=== PATIENT | female | born 1940 | race Caucasian/White ===

== ENCOUNTER → 2017-01-08 | Outpatient (CLI) | payer MEDICARE, BC ==
[~2017-01-08] MED LIST: ASPIRIN 32325 MG/TAB PO; CENTRUM SILVER1 TA1 PO; CHOLESTYRAMINE1 POW; CITRACAL PLUS1 TAB PO; CLONAZEPAM1 MG PO; FLUOXETINE40 MG PO; ISOSORBIDE MONO30 M1 PO; METOPROLOL SUC100 M1 PO; NIACIN500 M3 PO; NORVASC 5MG5 MG/TAB PO; OMEGA-31000 MG PO; OMEPRAZOLE20 MG PO; ULTRAM 50MG TAB50 MG PO
== END ==
LOC: MHCPAIN 10:28
DX: G89.29 Other chronic pain (principal); M47.817 Spondylosis without myelopathy or radiculopathy, lumbosacral region; M54.16 Radiculopathy, lumbar region; M53.3 Sacrococcygeal disorders, not elsewhere classified; M96.1 Postlaminectomy syndrome, not elsewhere classified
CPT/HCPCS: G0463

== ENCOUNTER → 2017-01-25 | Outpatient (CLI) | payer MEDICARE, BC | LOC: MHCPAIN 10:39 | DX: M47.817 Spondylosis without myelopathy or radiculopathy, lumbosacral region (principal) | CPT/HCPCS: J1100; Q9967 ==

== ENCOUNTER → 2017-02-28 | Outpatient (CLI) | payer MEDICARE, BC | LOC: MHCPAIN 10:13 | DX: G89.29 Other chronic pain (principal); M47.27 Other spondylosis with radiculopathy, lumbosacral region; M96.1 Postlaminectomy syndrome, not elsewhere classified; Z79.02 Long term (current) use of antithrombotics/antiplatelets | CPT/HCPCS: G0463 ==

== ENCOUNTER → 2017-05-02 | Outpatient (CLI) | payer MEDICARE, BC | LOC: MHCPAIN 11:36 | DX: G89.29 Other chronic pain (principal); M47.27 Other spondylosis with radiculopathy, lumbosacral region; M53.3 Sacrococcygeal disorders, not elsewhere classified; M96.1 Postlaminectomy syndrome, not elsewhere classified; Z79.02 Long term (current) use of antithrombotics/antiplatelets; Z79.82 Long term (current) use of aspirin | CPT/HCPCS: G0463 ==

== ENCOUNTER → 2017-08-22 | Outpatient (CLI) | payer MEDICARE, BC | LOC: MHCPAIN 09:46 | DX: G89.29 Other chronic pain (principal); M47.27 Other spondylosis with radiculopathy, lumbosacral region; M53.3 Sacrococcygeal disorders, not elsewhere classified; M96.1 Postlaminectomy syndrome, not elsewhere classified | CPT/HCPCS: G0463 ==

== ENCOUNTER → 2017-09-20 | Outpatient (CLI) | payer MEDICARE, BC | LOC: MHCPAIN 09:33 | DX: M47.817 Spondylosis without myelopathy or radiculopathy, lumbosacral region (principal); M96.1 Postlaminectomy syndrome, not elsewhere classified; M53.3 Sacrococcygeal disorders, not elsewhere classified | CPT/HCPCS: G0260; J1040; Q9967 ==

== ENCOUNTER → 2017-12-21 | Outpatient (CLI) | payer MEDICARE, BC | LOC: MHCPAIN 09:55 | DX: G89.29 Other chronic pain (principal); M47.817 Spondylosis without myelopathy or radiculopathy, lumbosacral region; M54.16 Radiculopathy, lumbar region; M53.3 Sacrococcygeal disorders, not elsewhere classified; M96.1 Postlaminectomy syndrome, not elsewhere classified | CPT/HCPCS: G0463 ==

== ENCOUNTER → 2018-02-12 | Outpatient (CLI) | payer MEDICARE, BC | LOC: MHCPAIN 10:22 | DX: G89.29 Other chronic pain (principal); M47.817 Spondylosis without myelopathy or radiculopathy, lumbosacral region; M54.16 Radiculopathy, lumbar region; M53.3 Sacrococcygeal disorders, not elsewhere classified; M96.1 Postlaminectomy syndrome, not elsewhere classified | CPT/HCPCS: G0463 ==

== ENCOUNTER → 2018-02-21 | Outpatient (CLI) | payer MEDICARE, BC | LOC: MHCPAIN 09:09 | DX: M47.817 Spondylosis without myelopathy or radiculopathy, lumbosacral region (principal) | CPT/HCPCS: J1100; J3010; Q9967 ==

== ENCOUNTER → 2018-04-24 | Outpatient (CLI) | payer MEDICARE, BC | LOC: MHCPAIN 09:13 | DX: G89.29 Other chronic pain (principal); M47.817 Spondylosis without myelopathy or radiculopathy, lumbosacral region; M54.16 Radiculopathy, lumbar region; M53.3 Sacrococcygeal disorders, not elsewhere classified; M96.1 Postlaminectomy syndrome, not elsewhere classified | CPT/HCPCS: G0463 ==

== ENCOUNTER → 2018-07-24 | Outpatient (CLI) | payer MEDICARE, BC | LOC: MHCPAIN 09:36 | DX: G89.29 Other chronic pain (principal); M47.817 Spondylosis without myelopathy or radiculopathy, lumbosacral region; M54.16 Radiculopathy, lumbar region; M53.3 Sacrococcygeal disorders, not elsewhere classified; M96.1 Postlaminectomy syndrome, not elsewhere classified | CPT/HCPCS: G0463 ==

== ENCOUNTER 2019-11-21 09:31 | Day surgery (SDC) | payer MEDICARE, BC ==
[~2019-11-21] VITALS: Ht 170.2 cm; Wt 102.5 kg
[2019-11-21 10:04] VITALS: BP 119/69; PULSE 61; TEMP 98.4
[2019-11-21] MEDS ORDERED: NEURONTIN600 MG/TAB PO (10:27)
[2019-11-21] MEDS ORDERED: LASIX 40MG TABL40 MG PO (10:27)
[2019-11-21] MEDS ORDERED: PROTONIX 40MG T40 MG PO (10:28)
[2019-11-21] MEDS ORDERED: K-DUR20 MEQ PO (10:28)
[2019-11-21] MEDS ORDERED: PLAVIX 75MG TAB75 MG PO (10:29)
[2019-11-21] MEDS ORDERED: LIPITOR 40MG TA40 MG PO (10:30)
[2019-11-21] MEDS ORDERED: ASPIRIN 81M81 MG/TA2 PO (10:30)
[2019-11-21] MEDS ORDERED: ATIVAN 1MG T1 MG/TAB PO (10:31)
[2019-11-21] MEDS ORDERED: NITRO-DUR0.4 MG/PAT TD (10:32)
[2019-11-21] MEDS ORDERED: ANTIVERT 25MG25 MG PO (10:32)
[2019-11-21] MEDS ORDERED: TYLENOL 500MG500 MG PO ×2 (10:33→10:34)
[2019-11-21] MEDS ORDERED: UNISOM SLEEPGEL50 MG PO (10:34)
[2019-11-21] MEDS ORDERED: FLEXERIL 1010 MG/TAB PO (10:35)
[2019-11-21 11:35] VITALS: BP 108/62; PULSE 57; TEMP 98.1
--- NOTE | 2019-11-21 11:35 | NUR ---
Patient brought back to [facility] via cart. Ambulated to chair with one assist. Placed on monitors, vital signs stable. SpO2 90% while coached increased to 94%. Patient is alert and oriented. Denies pain or nausea. Would like to just rest at this time. Warm blanket provided, call deal within reach. Will continue to monitor.
[2019-11-21 11:50] VITALS: BP 113/64; PULSE 58
--- NOTE | 2019-11-21 11:50 | NUR ---
Patient requesting diet Pepsi at this time. Tolerating without difficulty. Vital signs stable. Will conitnue to monitor.
[2019-11-21 12:05] VITALS: BP 107/67; PULSE 71
--- NOTE | 2019-11-21 12:05 | NUR ---
MD in pt room going over results. Daughters number given to MD per pt request. Patient denies pain or nausea. Would like to go home at this time. IV Removed without difficulty. Discharge instructions reviewed with patient. All questions answered. Pt to get dressed at this time.
--- NOTE | 2019-11-21 12:34 | NUR ---
René brought down to lobby via wheelchair. All belongings in hand. Daughter met at front door. To drive patient home.
== END 2019-11-21 12:34 | disposition home or self-care (01) ==
LOC: SDCO 09:31
DX: D12.0 Benign neoplasm of cecum (principal); D12.5 Benign neoplasm of sigmoid colon; D50.9 Iron deficiency anemia, unspecified; K57.30 Diverticulosis of large intestine without perforation or abscess without bleeding; R19.7 Diarrhea, unspecified; K29.30 Chronic superficial gastritis without bleeding
CPT/HCPCS: J2250; J3010; J7030

== ENCOUNTER 2022-01-13 09:37 | Day surgery (SDC) | payer MEDICARE, BC ==
[~2022-01-13] VITALS: Ht 170.2 cm; Wt 95.5 kg
[~2022-01-13 09:37] MED LIST changes: +ANTIVERT 25MG25 MG PO; +ASPIRIN 81M81 MG/TA2 PO; +ATIVAN 1MG T1 MG/TAB PO; +FLEXERIL 1010 MG/TAB PO; +K-DUR20 MEQ PO; +LASIX 40MG TABL40 MG PO; +LIPITOR 40MG TA40 MG PO; +NEURONTIN600 MG/TAB PO; +NITRO-DUR0.4 MG/PAT TD; +PLAVIX 75MG TAB75 MG PO; +PROTONIX 40MG T40 MG PO; +TYLENOL 500MG500 MG PO; +UNISOM SLEEPGEL50 MG PO
[2022-01-13 12:05] VITALS: BP 127/75; PULSE 61; TEMP 98.1
[2022-01-13] MEDS ORDERED: PROZAC60 MG PO (12:26)
[2022-01-13] MEDS ORDERED: LOPRESSOR100 MG PO (12:27)
[2022-01-13] MEDS ORDERED: IMDUR 60MG60 MG/TAB PO (12:27)
[2022-01-13] MEDS ORDERED: NEURONTIN300 MG/CAP PO (12:28)
[2022-01-13] MEDS ORDERED: NEURONTIN600 MG/TAB PO (12:29)
[2022-01-13] MEDS ORDERED: GLUCOTROL 5M5 MG/TAB PO (12:30)
[2022-01-13] MEDS ORDERED: CARAFATE 1GM1 G PO (12:31)
[2022-01-13] MEDS ORDERED: PEPCID 20MG TAB20 MG PO (12:32)
[2022-01-13 12:50] VITALS: BP 113/67; PULSE 58; TEMP 97.9
[2022-01-13 13:05] VITALS: BP 111/57; PULSE 54
[2022-01-13 13:20] VITALS: BP 120/66; PULSE 54
--- NOTE | 2022-01-13 13:40 | NUR ---
PT dismissed from endo via wheelchair by a tech. PT has DC packet and educational material, and personal belongings in hand, and was transferred into the care of her daughter, who is present to drive.
--- NOTE | 2022-01-13 13:45 | NUR ---
1250 - PT arrives and was settled by an RN. Written report obtained. Call deal is within reach. 1305 - VSS. PT oriented to room and call deal, within reach. PT provided diet coke and a warm muffin per request. PT denies nausea and pain. 1320 - VSS. PT expressed desire to be discharged. IV discontinued. Catheter tip intact. PRessure dressing applied. NO redness or swelling noted. DC instructions and educational material reviewed with the PT who verbalized understanding and signed the related paperwork. Questions answered to PT satisfaction. Halina is assisting the PT with changing per PT request.
[2022-01-13 13:53] VITALS: BP 114/82; PULSE 58
== END 2022-01-13 13:40 | disposition home or self-care (01) ==
LOC: SDCO 09:37
DX: I85.00 Esophageal varices without bleeding (principal); K29.30 Chronic superficial gastritis without bleeding; K74.60 Unspecified cirrhosis of liver; K21.9 Gastro-esophageal reflux disease without esophagitis; K76.0 Fatty (change of) liver, not elsewhere classified; R20.2 Paresthesia of skin; I69.311 Memory deficit following cerebral infarction; I10 Essential (primary) hypertension; Z79.82 Long term (current) use of aspirin
CPT/HCPCS: J2704; J7120

== ENCOUNTER 2022-04-28 12:48 | Day surgery (SDC) | payer MEDICARE, BC ==
[~2022-04-28] VITALS: Ht 167.6 cm; Wt 97.7 kg
[~2022-04-28 12:48] MED LIST changes: +CARAFATE 1GM1 G PO; +GLUCOTROL 5M5 MG/TAB PO; +IMDUR 60MG60 MG/TAB PO; +LOPRESSOR100 MG PO; +NEURONTIN300 MG/CAP PO; +PEPCID 20MG TAB20 MG PO; +PROZAC60 MG PO
[2022-04-28 14:45] VITALS: BP 111/63; PULSE 56
--- NOTE | 2022-04-28 14:45 | NUR ---
PATIENT RETURNS TO [facility] PER CART AND LEFT ON CART. AWAKE ALERT. TEMPT 98,3 AND ROOM AIR SATS 93%. IV FLUIDS INFUSING AND SIDERAIL UPX 2. TAKING SIPS OF SPRITE. SPOUSE AND DAUGHTER IN ROOM.
[2022-04-28 15:00] VITALS: BP 123/70; PULSE 71
--- NOTE | 2022-04-28 15:00 | NUR ---
FAMILY AT BEDSIDE. OFFERS NO COMPLAINTS AND TOLERATES FLUIDS.
--- NOTE | 2022-04-28 15:00 | NUR ---
FAMILY AT BEDSIDE. OFFERS NO COMPLAINTS AND TOLERATES FLUIDS.
[2022-04-28 15:15] VITALS: BP 129/65; PULSE 73
--- NOTE | 2022-04-28 15:15 | NUR ---
TALKS WITH SPOUSE.
--- NOTE | 2022-04-28 15:15 | NUR ---
TALKS WITH SPOUSE.
--- NOTE | 2022-04-28 15:23 | NUR ---
IV OUT AND SITE CLEAR. ASSISTED WITH DRESSING AND SITS ON THE EDGE OF THE CART.
--- NOTE | 2022-04-28 15:23 | NUR ---
IV OUT AND SITE CLEAR. ASSISTED WITH DRESSING AND SITS ON THE EDGE OF THE CART.
[2022-04-28 15:35] VITALS: BP 129/65; PULSE 56; TEMP 97.4
--- NOTE | 2022-04-28 15:35 | NUR ---
DISMISSAL INSTRUCTIONS GIVEN AND PATIENT AND DAUGHTER BOTH VERBALIZE UNDERSTANDING OF THESE.
--- NOTE | 2022-04-28 15:35 | NUR ---
DISMISSAL INSTRUCTIONS GIVEN AND PATIENT AND DAUGHTER BOTH VERBALIZE UNDERSTANDING OF THESE.
--- NOTE | 2022-04-28 15:41 | NUR ---
PATIENT ASSSITED INTO WHEELCHAIR AND TAKEN TO THE VEHICLE PER WHEELCHAIR AND ASSISTED INTO PRIVATE CAR WITH INSTRUCTIONS IN HAND.
--- NOTE | 2022-04-28 15:41 | NUR ---
PATIENT ASSSITED INTO WHEELCHAIR AND TAKEN TO THE VEHICLE PER WHEELCHAIR AND ASSISTED INTO PRIVATE CAR WITH INSTRUCTIONS IN HAND.
== END 2022-04-28 15:41 | disposition home or self-care (01) ==
LOC: SDCO 12:48
DX: K29.30 Chronic superficial gastritis without bleeding (principal); K31.7 Polyp of stomach and duodenum; K74.60 Unspecified cirrhosis of liver; K75.81 Nonalcoholic steatohepatitis (NASH); I85.10 Secondary esophageal varices without bleeding; K21.9 Gastro-esophageal reflux disease without esophagitis
CPT/HCPCS: J2704; J7030